=== PATIENT | female | born 1985 | race Caucasian/White ===

== ENCOUNTER 2023-03-14 18:18 | Emergency (ER) | payer OTHER, SELFPAY ==
[2023-03-14 18:20] VITALS: BP 159/90; PULSE 107; RESP 20; TEMP 36.7; O2SAT 100; BMI 53.1
[2023-03-14 18:30] VITALS: BP 213/157; PULSE 107; RESP 20; O2SAT 98
[2023-03-14 18:33] LABS: Coronavirus 19, PCR Not Detected (NotDetected); Influenza A, PCR Not Detected (NotDetected); Influenza B, PCR Not Detected (NotDetected)
[2023-03-14 18:42] LABS: Strep Scrn Group A (Rapid) Positive (Negative)
--- NOTE | 2023-03-14 18:54 | HMH.EDGENADL ---
Discharge Plan Disposition Patient Disposition: Home, Self-Care Condition: Fair Prescriptions Prescriptions: New prednisone 50 mg tablet 50 mg PO DAILY 5 Days Qty: 5 0RF Referrals Follow up/Referrals: Provider,Referral, [Primary Care Provider] - See instructions Clinical Impressions Clinical Impression: Strep throat Instructions Patient Instructions: DI for Strep Throat Discharge ED Provider: Jason Sung General Adult HPI General Chief complaint: Upper Respiratory Infection Stated complaint: sore swollen throat Time Seen by Provider: 03/14/23 18:59 Mode of Arrival: Ambulatory Source of Information: Patient Limitations: No Limitations Description of Symptoms (Recalled from ER Triage Doc. by RN): 37 F presents with 3 days of painful swallowing, swollen throat, fever/chills, and feels like she's swallowing razor blades. Patient has been taking OTC medications without relief. Airway patent History of Present Illness HPI narrative: This is a 37-year-old female presents emergency room with 3 days of sore throat and diet aphasia as well as subjective fevers and chills. No cough no hemoptysis no shortness of breath no difficulty swallowing. Related Data Previous Rx's Medication Instructions Recorded prednisone 50 mg tablet 50 mg PO DAILY 5 days #5 tabs 03/14/23 Allergies Allergy/AdvReac Type Severity Reaction Status Date / Time oxaprozin [From Daypro] AdvReac Mild Numbness Verified 03/14/23 18:29 [facility] Disclaimer: The information contained in this section may have been updated after the patient was seen, as this information can be updated by other users. Medical History (Updated 03/14/23 @ 18:58 by Jason Sung MD) No significant past medical history Surgical History (Updated 03/14/23 @ 18:30 by Umer Lara RN) No history of previous surgery Family History (Updated 03/14/23 @ 18:30 by Umer Lara RN) Other No significant family history Social History Smoking Status: Current every day smoker alcohol intake: current current occupational status: unemployed Travel in the last 8 weeks: None ROS Obtained: Yes All systems reviewed & no additional complaints except as documented Skin no rash or lesions HEENT see HPI Pulmonary no cough or shortness of breath Cardiovascular no chest pain pressure heaviness GI no abdominal pain nausea or vomiting no dysuria pyuria hematuria Musculoskeletal no neck or back pain Endocrine no polydipsia polyuria or polyphasia Psych no SI or HI The rest of the systems were reviewed and found to be negative Physical Exam Narrative Physical exam: Skin: Warm and dry HEENT: Normocephalic atraumatic extract muscles are intact pupils are equal and reactive to light there is erythema noted in the posterior pharynx. Neck: Supple nontender Lungs: Clear to auscultation Heart: Regular rate and rhythm Abdomen: NABS soft nontender Extremities: No clubbing cyanosis or edema Neurologic: No unilateral weakness or numbness Lymphatic: No cervical or inguinal adenopathy Musculoskeletal: No tenderness of the dorsal or lumbar spine Psych: No SI or HI General General appearance: alert Respiratory Respiratory exam: Present normal lung sounds bilaterally Cardiovascular Cardiovascular exam: Present regular rate Neurological Exam Neurological exam: Present alert Medical Decision Making Devin Inquiry Pt receiving controlled substance: No Vital Signs: 03/14/23 18:20 Temperature 98.1 F Temperature Source Oral Pulse Rate [Left] 107 H Respiratory Rate 20 Blood Pressure [Right Arm] 159/90 H Blood Pressure Mean [Right Arm] 113 Blood Pressure Source [Right Arm] Automatic Cuff Blood Pressure Position [Right Arm] Sitting 02 Sat by Pulse Oximetry 100 Oxygen Delivery Method Room Air Lab Data Lab Results 03/14/23 18:25: Group A Strep Rapid Positive A 03/14/23 18:25: ASHIA
[2023-03-14 19:07] VITALS: BP 159/97; PULSE 99; RESP 19; TEMP 36.7; O2SAT 98
== END 2023-03-14 19:07 | disposition home or self-care (01) ==
PROVIDERS: Emergency Provider Emergency Medicine
DX: J02.0 Streptococcal pharyngitis (principal); F17.210 Nicotine dependence, cigarettes, uncomplicated
CPT/HCPCS: 87430; 87635; 87636; 96372; 99283; 99284; C9803; J0561; U0003; U0005

== ENCOUNTER 2024-05-14 12:36 | Emergency (ER) | payer SELFPAY ==
[2024-05-14 12:38] VITALS: BP 163/111; PULSE 113; RESP 19; TEMP 36.7; O2SAT 99; BMI 41.5
[2024-05-14 12:49] VITALS: BP 149/57; PULSE 118; RESP 19; O2SAT 99
--- NOTE | 2024-05-14 12:57 | ED_ITS ---
Discharge Plan Disposition Patient Disposition: Home, Self-Care Condition: Good Prescriptions Prescriptions: No Action prednisone 50 mg tablet 50 mg PO DAILY 5 Days Qty: 5 0RF Referrals Follow up/Referrals: Vicky Serra APRN [Primary Care Provider] - See instructions Activity Restrictions/Add. Instructions Additional Instructions/Restrictions: As we discussed, your ultrasound did not show a deep vein thrombosis in your leg. On my ultrasound I do see evidence of superficial thrombophlebitis associated with your varicose veins. This is typically treated symptomatically, please review the instructions. I recommend you establish care with a vascular surgeon to discuss further management options. Additionally, please use compression stockings. Please return with any new or worsening symptoms peer Clinical Impressions Clinical Impression: Thrombophlebitis Instructions Patient Instructions: DI for Superficial Thrombophlebitis Print Language Print Language: [place]ese Discharge ED Provider: Joseluis Cadena Adult HPI General Chief complaint: PAIN Stated complaint: Pain in L knee/hist of blood clots Time Seen by Provider: 05/14/24 12:57 Mode of Arrival: Ambulatory Source of Information: Patient Limitations: No Limitations Description of Symptoms (Recalled from ER Triage Doc. by RN): pt presents to ED with c/o left calf pain. pt reports pain, swelling, redness began two days ago. pt reports hx of DVT, PE, but does not take daily blood thinner. History of Present Illness HPI narrative: The patient presents with a chief complaint of a new swelling in the leg, which was noticed two nights ago at work. The patient has a history of deep vein thrombosis (DVT) in 2017, provoked by smoking, control, and being over 35 years old. The patient is concerned about the possibility of another DVT due to the new swelling. The patient reports that the redness and swelling in the leg decrease when off their feet. The patient also mentions a history of surgery in the affected area two years ago. The patient denies any shortness of breath or cough and reports no recent travel or other potential triggers for the current swelling. The patient is not currently on any blood thinners. The patient also reports the presence of nodules in the leg, which have been gradually appearing over time, leading to leg discoloration. The patient's heart rate is elevated at 120 bpm, which may be due to nervousness. The patient has a history of pulmonary emboli and is concerned about the possibility of another occurrence. The patient denies any increased shortness of breath beyond their baseline due to smoking. The patient reports that during their previous DVT episode, the blood clots were lodged behind their knees, and they also had cellulitis. The patient mentions previous treatments with Eliquis, Warfarin, and Lovenox in the hospital. The patient states that their lungs were full during the previous pulmonary emboli episode. The patient describes the affected leg as feeling hot, particularly near the stomach area, and notes that the whole leg has been larger since the previous DVTs. Please note that above description of symptoms, in this electronic medical record under categorization of recalled from ER triage doctor by RN are reflective of an initial nursing assessment, however, is not reflective of my full history and physical exam that was personally taken and clarified. Consequentially, this preceding description of symptoms, which may include the patient's categorized chief complaint in the EMR, do not reflect my personal clinical impression, and the ultimate description of history of present illness and patient stated complaints should be deferred to this section of the note. Unless stated otherwise or congruent with this section of the note, additional signs, symptoms, or incongruence should be interpreted as inaccurate with my clinical impression. Related Data Previous Rx's ?Medication ?Instructions ?Recorded prednisone 50 mg tablet 50 mg PO DAILY 5 days #5 tabs 03/14/23 Allergies Allergy/AdvReac Type Severity Reaction Status Date / Time oxaprozin [From Daypro] AdvReac Mild Numbness Verified 03/14/23 18:29 [facility] Disclaimer: The information contained in this section may have been updated after the patient was seen, as this information can be updated by other users. Medical History (Updated 05/14/24 @ 15:01 by Joseluis Cadena MD) No significant past medical history Surgical History (Updated 03/14/23 @ 18:30 by Umer Lara RN) No history of previous surgery Family History (Updated 03/14/23 @ 18:30 by Umer Lara RN) Other No significant family history Social History (Updated 03/14/23 @ 18:59 by Jason Sung MD) Smoking Status: Current every day smoker alcohol intake: current current occupational status: unemployed Travel in the last 8 weeks: None ROS Obtained: Yes other As per HPI Physical Exam General General appearance: alert and in no apparent distress Head Head exam: atraumatic and normocephalic Eye Eye exam: Present normal appearance Neck Neck exam: Present normal inspection Chest Chest inspection: Present normal inspection and symmetric chest wall rise Respiratory Respiratory exam: Present normal lung sounds bilaterally; Absent respiratory distress Cardiovascular Cardiovascular exam: Present regular rate and normal rhythm Abdominal Exam Abdominal exam: Present soft Neurological Exam Neurological exam: Present alert and oriented X3 Psychiatric Psychiatric exam: Present normal affect and normal mood Skin Skin exam: Present warm and dry Other Other exam information: Mild left lower extremity tenderness to palpation, tender palpable superficial cords overlying varicose veins, negative Homans' sign. Medical Decision Making Medical Records Medical records reviewed: Yes I reviewed the patient's medical records. Devin Inquiry Pt receiving controlled substance: No Vital Signs: 05/14/24 12:38 05/14/24 12:49 05/14/24 13:24 Temperature 98.1 F Temperature Source Oral Pulse Rate 118 H 89 Pulse Rate [Left Radial] 113 H Respiratory Rate 19 19 16 Blood Pressure 149/57 H 150/95 H Blood Pressure [Right Arm] 163/111 H Blood Pressure Mean [Right Arm] 128 02 Sat by Pulse Oximetry 99 99 99 Oxygen Delivery Method Room Air Room Air Room Air 05/14/24 15:15 Temperature 98.1 F Temperature Source Pulse Rate 89 Pulse Rate [Left Radial] Respiratory Rate 16 Blood Pressure 127/57 L Blood Pressure [Right Arm] Blood Pressure Mean [Right Arm] 02 Sat by Pulse Oximetry Oxygen Delivery Method Room Air Orders (Tests/Meds): ORDERS Category Date Time Status CA venous doppler LE LT Stat Y 05/14/24 13:14 Completed Medical Decision Narrative: Patient with history and exam per above presenting for evaluation of left lower extremity pain, swelling Diagnoses considered include DVT, superficial thrombophlebitis, symptomatic varicose veins, no clinical evidence to suggest cellulitis, necrotizing soft tissue infection, or other acute surgical pathology. No clinical signs or symptoms of pulmonary embolism at this time. ED workup and treatment included: Venous duplex ultrasound of lower extremity Imaging was independently visualized and interpreted by me, significant for no evidence of DVT Please refer to radiology report for full details. My clinical impression at this time is most consistent with superficial thrombophlebitis versus symptomatic varicose veins. Patient will be treated symptomatically. I discussed my clinical impression with patient and answered all questions. At this time, the evidence for any other entities in the differential is insufficient to warrant any further testing or ED observation. This was e xplained to the patient. The patient was advised that persistent or worsening symptoms require further evaluation. Critical Care Critical Care Time Critical Care Time: No
--- NOTE | 2024-05-14 13:14 | CA_ITS ---
FINAL REPORT TECHNIQUE: Ultrasound images of the deep venous system were obtained from the left groin to the calf veins. CLINICAL HISTORY: LLE swelling, hx dvt, H/o let knee surgery-2 years ago, large body habitus FINDINGS: The deep venous system is normally compressible. Normal flow is identified. IMPRESSION: No evidence of left lower extremity DVT. Reviewed, Interpreted and Dictated by Alex Peterson MD Transcribed by Reta Sutherland Authenticated and [facility]
[2024-05-14 13:24] VITALS: BP 150/95; PULSE 89; RESP 16; O2SAT 99
[2024-05-14 15:15] VITALS: BP 127/57; PULSE 89; RESP 16; TEMP 36.7; O2SAT 97
== END 2024-05-14 15:15 | disposition home or self-care (01) ==
PROVIDERS: Emergency Provider Emergency Medicine; PCP Nurse Practitioner
DX: I80.02 Phlebitis and thrombophlebitis of superficial vessels of left lower extremity (principal); M79.662 Pain in left lower leg; R22.42 Localized swelling, mass and lump, left lower limb; Z86.718 Personal history of other venous thrombosis and embolism
CPT/HCPCS: 93971; 99284

== ENCOUNTER 2025-09-22 14:02 | Emergency (ER) | payer SELFPAY ==
[2025-09-22 14:12] VITALS: BP 147/96; PULSE 107; RESP 18; TEMP 36.6; O2SAT 99; BMI 41.0
--- NOTE | 2025-09-22 14:12 | XR_ITS ---
FINAL REPORT CLINICAL HISTORY: short of breath FINDINGS: A portable view of the chest was obtained. Cardiac and mediastinal silhouettes are within normal limits. The lungs are clear. There is no pleural effusion or pneumothorax. IMPRESSION: No acute process on this portable exam. Reviewed, Interpreted and Dictated by Margarita Rodríguez MD Transcribed by Reta Sutherland Authenticated and [facility]
--- NOTE | 2025-09-22 14:15 | ED_ITS ---
<Statement entered by Paul Rodriguez MD - 09/23/25 15:57> Paul Rodriguez MD: I was consulted by the BRET, and we discussed the complexity of the problems being addressed. I approved the treatment and management plan for this patient's care in the emergency department, thus performing a substantive portion of the medical decision making. Discharge Plan Disposition Chief Complaint: Upper Respiratory Infection Prescriptions Prescriptions: No Action prednisone 50 mg tablet 50 mg PO DAILY 5 Days Qty: 5 0RF Referrals Follow up/Referrals: Vicky Serra APRN [Primary Care Provider, Medical] - See instructions Print Language Print Language: Citizen Of [place] Discharge ED Provider: Paul Rodriguez General Adult HPI General Chief complaint: Upper Respiratory Infection Stated complaint: body aches, headache ,sore throat Time Seen by Provider: 09/22/25 14:04 History of Present Illness HPI narrative: 40-year-old female presents to the ED for complaint of headache, neck pain, chills, hot flashes, sore throat and bodyaches. She says that her son got diagnosed with flu a on the and she has not felt any better since then either. She complains of her right eye being blurry. She has a headache. She says she just does not feel well . She says she also has quit smoking since the because of her coughing. Patient is anxious and upset during triage. Related Data Previous Rx's ?Medication ?Instructions ?Recorded prednisone 50 mg tablet 50 mg PO DAILY 5 days #5 tab s 03/14/23 Allergies Allergy/AdvReac Type Severity Reaction Status Date / Time oxaprozin (From Daypro) AdvReac Mild Numbness Verified 03/14/23 18:29 [facility] Disclaimer: The information contained in this section may have been updated after the patient was seen, as this information can be updated by other users. Medical History (Updated 05/14/24 @ 15:01 by Joseluis Cadena MD) No significant past medical history Surgical History (Updated 03/14/23 @ 18:30 by Umer Lara RN) No history of previous surgery Family History (Updated 03/14/23 @ 18:30 by Umer Lara RN) Other No significant family history Social History (Updated 03/14/23 @ 18:59 by Jason Sung MD) Smoking Status: Former smoker alcohol intake: current current occupational status: unemployed Travel in the last 8 weeks?: None Have you lived/traveled outside [place] in past 30 days?: No Contact w/someone who lives/traveled outside US past 30 days?: No Exposure to someone with infectious disease in past 14 days?: No Do you have a fever (greater than 100.4 F or 38 C)?: No Have you tested positive for COVID-19?: No Exposed to someone with COVID-19 in past 14 days?: No Do you have a sore throat?: Yes Do you have a cough?: Yes Do you have any weakness?: Yes Do you have any diarrhea?: Yes Are you experiencing any unusual bleeding?: No Do you have any muscle aches/pain?: Yes Do you have any abdominal pain?: No Are you experiencing loss of taste or smell?: No ROS Obtained: Yes Systems reviewed as appropriate & no additional complaints except as documented Constitutional Constitutional: Reports as per HPI Physical Exam General General appearance: alert and anxious Head Head exam: normocephalic Eye Eye exam: Present PERRL and EOMI ENT ENT exam: Present normal oropharynx and mucous membranes moist Neck Neck exam: Present full ROM and trachea midline Respiratory Respiratory exam: Present normal lung sounds bilaterally Cardiovascular Cardiovascular exam: Present regular rate, normal rhythm, +S1 and +S2 Abdominal Exam Abdominal exam: Present soft and normal bowel sounds Extremities Exam Extremities exam: Present full ROM and normal capillary refill Neurological Exam Neurological exam: Present alert and oriented X3 Skin Skin exam: Present warm and dry Medical Decision Making Medical Records Screening: Per USPSTF and CDC recommendations, given the prevalence of disease in our region, it is our hospital?s policy to screen for HIV and viral Hepatitis for all patients aged 18 and over and those with ongoing risk factors. Devin Inquiry Pt receiving controlled substance: No Devin was queried for this patient: No Vital Signs: 09/22/25 14:12 09/22/25 15:00 Temperature 97.9 F Temperature Source Oral Pulse Rate 81 Pulse Rate [Right] 107 H Respiratory Rate 18 Blood Pressure 134/88 Blood Pressure [Right Arm] 147/96 H Blood Pressure Mean [Right Arm] 113 Blood Pressure Source [Right Arm] Automatic Cuff Blood Pressure Position [Right Arm] Sitting 02 Sat by Pulse Oximetry 99 97 Oxygen Delivery Method Room Air Lab Data Lab Results 09/22/25 14:11: SARS-CoV-2 (PCR) Not detected, Influenza A Untype (PCR) Not detected, Influenza Type B (PCR) Not detected 09/22/25 14:21: WBC 11.9 H, RBC 4.53, Hgb 13.3, Hct 40.5, MCV 89.4, MCH 29.4, MCHC 32.8, RDW 12.6, Plt Count 331, MPV 10.5 H, Neut % (Auto) 61.9, Lymph % (Auto) 29.0, [place] % (Auto) 6.1, Eos % (Auto) 2.1, Baso % (Auto) 0.6, Neut # (Auto) 7.3, Lymph # (Auto) 3.4, [place] # (Auto) 0.7, Eos # (Auto) 0.3, Baso # (Auto) 0.1, Sodium 136, Potassium 4.1, Chloride 103, Carbon Dioxide 29, Anion Gap 8.1, BUN 13, Creatinine 0.80, Estimated Creat Clear 177, Estimated GFR 79, Est GFR ( Amer) 95, Glucose 97, Calcium 8.9, Magnesium 1.6, Total Bilirubin 0.5, AST 26, ALT 21, Alkaline Phosphatase 78, Total Protein 6.9, Albumin 3.9, Globulin 3.0, Albumin/Globulin Ratio 1.3, Lipase 169 09/22/25 14:21 09/22/25 14:21 Orders (Tests/Meds): ED MEDICATIONS Discontinued Medications Generic Name Dose Route Start Last Admin Trade Name Freq PRN Reason Stop Dose Admin Acetaminophen 1,000 mg 09/22/25 14:12 09/22/25 14:23 Acetaminophen 1,000mg/100ml Vial IV 09/22/25 14:13 1,000 mg ONCE ONE Administration Dexamethasone Sodium Phosphate 8 mg 09/22/25 14:14 09/22/25 14:23 Dexamethasone 4mg/Ml 1ml Vial IV 09/22/25 14:15 8 mg ONCE ONE Administration Sodium Chloride 1,000 mls @ 999 mls/hr 09/22/25 14:12 09/22/25 14:24 Sod Chlor 0.9% 1000ml Bag IV 09/22/25 15:12 999 mls/hr .Q1H1M ONE Administration Ketorolac Tromethamine 30 mg 09/22/25 14:12 09/22/25 14:23 Ketorolac 30mg/Ml Vial IV 09/22/25 14:13 30 mg ONCE ONE Administration Ondansetron HCl 4 mg 09/22/25 14:12 09/22/25 14:23 Ondansetron 4mg/2ml Vial IV 09/22/25 14:13 4 mg ONCE ONE Administration Orphenadrine Citrate 60 mg 09/22/25 15:13 09/22/25 15:16 Orphenadrine Citrate 60mg/2ml Vial IV 09/22/25 15:14 60 mg ONCE ONE Administration ORDERS Category Date Time Status Chest XR -- portable [XR chest portable] Stat Exams 09/22/25 14:12 Taken CBC [Complete Blood Count Auto Diff] Stat Lab 09/22/25 14:21 Completed Comprehensive Metabolic Panel Stat Lab 09/22/25 14:21 Completed Lipase Stat Lab 09/22/25 14:21 Completed Magnesium Stat Lab 09/22/25 14:21 Completed Rapid PCR Covid and Flu A/B Stat Lab 09/22/25 14:11 Completed Medical Decision Narrative: patient is a 40-year-old female presenting to the emergency department for evaluation of bodyaches, headache and sore throat. Patient is hemodynamically stable and nontoxic-appearing upon arrival, afebrile. Differential diagnosis includes viral illness, flu, COVID among other. Workup will be conducted with hematologic labs, specific imaging. Initial inventions include crystalloid bolus, analgesics. Initial workup reviewed by tn hematologic labs are remarkable for White blood cell count of 11.9, H&H were normal, CMP was normal. Chest x-ray read by Dr. Rodriguez as some vascular congestion. Will wait for the radiology read. Patient's blood work looked normal. Chest x-ray was read as no acute process. Discussed with patient that she needs to rest, drink plenty of fluids and follow-up with her PCP. Critical Care Critical Care Time Critical Care Time: No
[2025-09-22 14:19] LABS: Coronavirus 19, PCR Not Detected (NotDetected); Influenza A, PCR Not Detected (NotDetected); Influenza B, PCR Not Detected (NotDetected)
[2025-09-22] MEDS: ACETAMINOPHEN 1,000MG/100ML VIAL 1000 MG IV (14:23)
[2025-09-22] MEDS: KETOROLAC 30MG/ML VIAL 30 MG IV (14:23)
[2025-09-22] MEDS: ONDANSETRON 4MG/2ML VIAL 4 MG IV (14:23)
[2025-09-22] MEDS: DEXAMETHASONE 4MG/ML 1ML VIAL 8 MG IV (14:23)
[2025-09-22] MEDS: 0.9 % SODIUM CHLORIDE 1000ML 1,000 ML 999 ML IV (14:24)
--- OUTSIDE RECORDS SUMMARY | 2025-09-22 14:25 | XMS_ITS | Clinical Summary ---
Author Organization [facility] Address [address] [facility] [address] Phone Care Team Providers Care Medicaid Analyst Name Role Phone Melissa Archuleta LISA Primary Care Provider + Allergies Active Allergy Reactions Criticality Noted Date Comments Amoxicillin-Pot Clavulanate Nausea And Vomiting 05/03/2022 Oxaprozin Swelling 05/02/2022 Feet and hands Erythromycin Other (See Comments) Low 07/15/2015 Latex Rash 05/02/2022 Levofloxacin Itching 05/02/2022 Tomato Other (See Comments) Low 02/12/2014 Medications hydrOXYzine (VISTARIL) 50 mg Oral Capsule hydroxyzine pamoate 50 mg capsule Active gabapentin (NEURONTIN) 300 mg Oral Capsule gabapentin 300 mg capsule Active cyclobenzaprin e (FLEXERIL) 10 mg Oral Tablet cyclobenzaprine 10 mg tablet Active PROAIR HFA 90 mcg/actuation Inhl HFA Aerosol Inhaler 03/03/20 Active HYDROcodone-ac etaminophen (NORCO) 5-325 mg Oral TabletIndicati ons:Closed fracture of left tibial plateau, initial encounter Take 1 Tablet by mouth every 8 hours as needed for Acute Pain (R52). 20 Tablet 05/05/20 Active Additional Information Patient not taking.Reason: Pt electing to not take the medication, Reported on 09/21/2022 nabumetone (RELAFEN) 750 mg Oral Tablet Take 750 mg by mouth as needed for Pain. 2 at bedtime Active Active Problems Problem Noted Date Diagnosed Date Closed fracture of left tibial plateau 2 Surgical History Surgery Date Site/Laterality Comments TONSILLECTOMY AND ADENOIDECTOMY SECTION CHOLECYSTECTOMY ANKLE SURGERY Right BACK SURGERY FOOT SURGERY TIBIA FRACTURE SURGERY 05/12/2022 Knee/Left LEFT LATERAL TIBIAL PLATEAU OPEN REDUCTION INTERNAL FIXATION; Surgeon: Ramiro Tam MD; Location: [facility]; Service: Orthopedics Medical devices from this surgery are in the Medical Devices section. Medical History Medical History Date Comments Depression Sleep apnea can not tolerate CPAP Chronic sciatica Vasovagal syncope has been years since this has been an issue, last time she passed out was 2017 DVT, lower extremity (HCC) 2016 PE (pulmonary thromboembolism) (HCC) 2017 Pneumonia Family History Medical History Relation Name Comments Anesth Problems Neg Hx Social History Tobacco Use Types Packs/Day Years Used Date Smoking Tobacco: Every Day Cigarettes Smokeless Tobacco: Never Tobacco Cessation:Ready to Q uit: Not Asked; Counseling Given: Not Answered Alcohol Use Standard Drinks/Week Comments Not Currently 0 (1 standard drink = 0.6 oz pur e alcohol) rare Comments No Sex and Gender Information Value Date Recorded Sex Assigned at Not on file Legal Sex Female 6:04 AM EDT Gender Identity Not on file Sexual Orientation Not on file Obstetrics History Para Term AB IAB SAB Ectopic Multiple Livin g Live Births 2 1 1 1 1 Date Outcome GA Total Labor Labor/2nd/3rd Weight Sex Type Anes PTL Terrie A1 A5 Name Clin Para SAB Last Filed Vital Signs Vital Sign Reading Time Taken Comments Blood Pressure 138/88 05/12/2022 4:12 PM EDT Pulse 95 05/12/2022 4:12 PM EDT Temperature 36.3 C (97.4 F) 05/12/2022 3:10 PM EDT Respiratory Rate 18 05/12/2022 4:12 PM EDT Oxygen Saturation 95% 05/12/2022 4:12 PM EDT Inhaled Oxygen Concentration - - Weight 178 kg (392 lb 7 oz) 05/12/2022 9:03 AM E DT Height 172.7 cm (5' 8 ) 05/12/2022 9:03 AM EDT Body Mass Index 59.67 05/12/2022 9:03 AM EDT Plan of Treatment Health Maintenance Due Date Last Done Comments Annual Wellness Exam 1986 Hepatitis B Vaccine (1 of 3 - 19+ 3-dose series) 2002 Pneumococcal Vaccine 0-49 (1 of 2 - PCV) 2002 Cervical Cancer Screening 2004 Pap Smear 2004 HPV/Pap Cotest 2013 Breast Cancer Screening 2023 DTaP/TDaP/Td (2 - Td or Tdap) 08/12/2024 08/12/2014 COVID-19 Vaccine (4 - 2024-2 6 season) 2025 08/10/2021, 12/11/2020, 11/20/2020 Influenza Vaccine (#1) 2025 12/02/2019 Meningococcal B Vaccine Aged Out No l onger eligible based on patient's age to complete this topic Medical Devices Implanted Type Area Journey Lineman Device Identifier Shelf Expiration Date Model / Serial / Lot Screw Bone 2.7mm 70mm Variax T8 Full Thread Nonsterile - [id number] Implanted:Qty: 1 on 05/12/2022 by Ramiro Tam MD at [facility] Left: Leg [employer]OK:[employer]TH[employer] CS [id number] / / Screw Bone 2.7mm 55mm Variax T8 Full Thread Lock Sterile - [id number] Implanted:Qty: 1 on 05/12/2022 by Ramiro Tam MD at [facility] Left: Leg [employer]TH[employer] CS [id number] / / Screw Bone 2.7mm 65mm Variax T8 Full Thread Lock Nonsterile - [id number] Implanted:Qty: 1 on 05/12/2022 by Ramiro Tam MD at [facility] Left: Leg [employer] CS [id number] / / Screw Bone 2.7mm 70mm Variax T8 Full Thread Lock Nonsterile - [id number] Implanted:Qty: 2 on 05/12/2022 by Ramiro Tam MD at [facility] Left: Leg [employer]:ORTH[employer] CS [id number] / / Plate Broad 2.7mm 6 Hole Lock 56mm Nonsterile - [id number] Implanted:Qty: 1 on 05/12/2022 by Ramiro Tam MD at [facility] Left: Leg [employer]:ORTH[employer] CS [id number] / / Insurance [id number] Care Teams Medicaid Analyst Relationship Specialty Start Date End Date Melissa Archuleta APRN [address] [place] [address] [place] [address] PCP - General Nurse Practitioner-Family 05/02/22
--- OUTSIDE RECORDS SUMMARY | 2025-09-22 14:25 | XMS_ITS | Clinical Summary ---
Author Organization [facility] Address [address] [place] [address] Care Team Providers Care Partition Assembly Machine Operator Name Role Phone Maira Garcia BLACKSMITH HAMMER OPERATOR Primary Care Provider Oriana Mayen BLACKSMITH HAMMER OPERATOR Unavailable [phone] Allergies Active Allergy Reactions Criticality Noted Date Comments Codeine Other - please docum ent in the comment field Low 11/15/2007 Erythromycin Other - please docum ent in the comment field Low 07/15/2015 Latex Rash,Unknown - Patie nt states they do not know rxn details Low 11/15/2007 Hypersensitivity unknown Levofloxacin Itching,Rash Medium 06/17/2019 Oxaprozin Swelling High 02/12/2014 Feet and hands Titanium Other - please docum ent in the comment field Low 09/11/2022 Tomato Other - please docum ent in the comment field Low 02/12/2014 Medications cyclobenzaprin e (Flexeril) 10 MG tablet cyclobenzaprine 10 mg tablet Active fluticasone (Flonase) 50 MCG/ACT nasal spray fluticasone propionate 50 mcg/actuation nasal spray,suspension Active gabapentin (Neurontin) 400 MG capsule gabapentin 400 mg capsule Active hydrOXYzine pamoate (Vistaril) 50 MG capsule hydroxyzine pamoate 50 mg capsule Active ketorolac (Toradol) 30 MG/ML injection 2 mL. 08/02/20 Active methocarbamol (Robaxin) 750 MG tablet methocarbamol 750 mg tablet Active nabumetone (Relafen) 750 MG tablet nabumetone 750 mg tablet TAKE 2 TABLETS BY MOUTH ONCE DAILY IN THE MORNING Active traMADol (Ultram) 50 MG tablet tramadol 50 mg tablet Active neomycin-polym yxin-hydrocort isone (Cortisporin) 3.5-96444-2 otic suspension 10/13/19 Active ofloxacin (Floxin) 0.3 % otic solution 10/20/19 Active Social History Tobacco Use Types Packs/Day Years Used Date Smoking Tobacco: Every Day Cigarettes 0.5 17 Smokeless Tobacco: Never Tobacco Cessation:Ready to Q uit: Not Asked; Counseling Given: Not Answered Alcohol Use Standard Drinks/Week Comments Yes 0 (1 standard drink = 0.6 oz pur e alcohol) social Comments Unknown Sex and Gender Information Value Date Recorded Sex Assigned at Female 11/03/2022 12:56 PM EST Legal Sex Female 8:00 PM EDT Gender Identity Female 11/03/2022 12:56 PM EST Sexual Orientation Straight 11/03/2022 12 :56 PM EST Last Filed Vital Signs Vital Sign Reading Time Taken Comments Blood Pressure 140/95 11/03/2022 12:38 PM EST Pulse 109 11/03/2022 12:38 PM EST Temperature - - Respiratory Rate 18 11/03/2022 12:38 PM EST Oxygen Saturation 99% 11/03/2022 12:38 PM EST Inhaled Oxygen Concentration - - Weight 164 kg (361 lb 8.9 oz) 11/03/2022 12:38 P M EST Height 172.7 cm (5' 8 ) 11/03/2022 12:38 PM EST Body Mass Index 54.97 11/03/2022 12:38 PM EST Plan of Treatment Health Maintenance Due Date Last Done Comments [facility]-Depression Screening 1983 [facility]-HIV Screening 1983 [facility]-Hepatitis C Screening 1983 [facility]-Infant/Child/Adol SDOH Screenings 1983 [facility]-Varicella Vaccines (1 of 2 - 13+ 2-dose series) 1996 [facility]- SDOH Screenings 2001 [facility]-Adult SDOH Screenings 2001 [facility]-Hepatitis B Vaccines (1 of 3 - 19+ 3-dose series) 2002 [facility]-Pap Smear 2004 [facility]-Cervical Cancer Screening 2013 [facility]-HPV/Cotest 2013 [facility]-DTaP,Tdap,and Td Vaccine s (2 - Td or Tdap) 08/12/2024 08/12/2014 [id number] Vaccine (4 - season) 2025 08/10/2021, 12/11/2020, 11/20/2020 [facility]-Influenza Vaccine (#1) 2025 12/02/2019 [facility]-Zoster Vaccines (1 of 2) 2033 [facility]-Obesity Intervention Completed 023, 09/11/2022 HPV Vaccines (No Doses Required) Completed [facility]-HIB Vaccines Aged Out No longer e ligible based on patient's age to complete this topic [facility]-Hepatitis A Vaccines Aged Out No longer eligible based on patient's age to complete this topic [facility]-IPV Vaccines Aged Out No longer e ligible based on patient's age to complete this topic [facility]-Pneumococcal Vaccine: Pediatrics (0 to 5 Years) and At-Risk Patients (6 to 49 Years) Aged Out No longer eligible b ased on patient's age to complete this topic [facility]-Rotavirus Vaccines Aged Out No lo nger eligible based on patient's age to complete this topic Insurance [employer] [facility] MEDICAID Care Teams Partition Assembly Machine Operator Relationship Specialty Start Date End Date Maira Garcia APRN [address] [place], [place] [address], [place] [address] PCP - General 09/11/22 Oriana Mayen APRN [address] [id number] Nurse Practitioner Neurosurgery 09/11/22
[2025-09-22 14:31] LABS: Hematocrit 40.5 % (37.0-47.0); Hemoglobin 13.3 g/dL (12.2-16.2); Immature Granulocytes % 0.3 %; Mean Corpuscular HGB Conc 32.8 g/dL (31.8-35.4); Mean Corpuscular Hemoglobin 29.4 pg (27.0-31.2); Mean Corpuscular Volume 89.4 fl (81-99); Nucleated Red Blood Cells % 0 %; Platelet Count 331 K/mm3 (142-424); Red Blood Count 4.53 M/mm3 (4.20-5.40); Red Cell Distribution Width-SD 41.6 fL; White Blood Count 11.9 K/mm3 (4.8-10.8)
[2025-09-22 14:44] LABS: Alanine Aminotransferase 21 U/L (12-78); Albumin Level 3.9 g/dl (3.5-5.0); Albumin/Globulin Ratio 1.3 (1.1-1.8); Alkaline Phosphatase 78 U/L (38-126); Anion Gap 8.1 mEq/L (5-15); Aspartate Amino Transferase 26 U/L (14-36); Bilirubin,Total 0.5 mg/dl (0.2-1.3); Blood Urea Nitrogen 13 mg/dl (7-17); Calcium 8.9 mg/dl (8.4-10.2); Carbon Dioxide 29 mmol/L (22.0-30.0); Chloride 103 mmol/L (98-107); Creatinine Clearance Estimated 177 mL/min (50-200); Creatinine,Serum 0.80 mg/dl (0.52-1.04); Estimated Glomerular Filt Rate 79 ml/min (>60); GFR (African American) 95 ML/MIN (>60); Globulin 3.0 g/dL (1.3-3.2); Glucose 97 mg/dl (74-100); Lipase 169 U/L (23-300); Magnesium 1.6 mg/dl (1.6-2.3); Potassium 4.1 mmoL/L (3.5-5.1); Sodium 136 mmol/L (136-145); Total Protein,Serum 6.9 g/dl (6.3-8.2)
[2025-09-22 15:00] VITALS: BP 134/88; PULSE 81; O2SAT 97
[2025-09-22] MEDS: ORPHENADRINE CITRATE 60MG/2ML VIAL 60 MG IV (15:16)
--- NOTE | 2025-09-22 15:34 | PC.NURSE ---
Patient in room sleeping.
--- NOTE | 2025-09-22 16:09 | PC.NURSE ---
Assisted to the restroom
[2025-09-22 16:26] LABS: Strep Scrn Group A (Rapid) Negative (Negative)
[2025-09-22 16:30] VITALS: BP 130/75; PULSE 75; RESP 16; TEMP 36.6; O2SAT 98
== END 2025-09-22 16:31 | disposition home or self-care (01) ==
PROVIDERS: Nurse Practitioner; Emergency Provider Emergency Medicine; PCP Nurse Practitioner
DX: R51.9 Headache, unspecified (principal); R07.0 Pain in throat; R53.81 Other malaise; B34.9 Viral infection, unspecified
CPT/HCPCS: 71045; 80053; 83690; 83735; 85025; 87430; 87636; 96361; 96374; 96375; 99284; J0131; J1100; J1885; J2360; J2405; J7030